=== PATIENT | female | born 1995 | race Caucasian/White ===

== ENCOUNTER 2016-10-08 11:58 | Emergency (ER) | payer OTHER ==
[~2016-10-08] VITALS: Ht 177.8 cm; Wt 72.6 kg
[2016-10-08 12:41] VITALS: BP 120/64
--- NOTE | 2016-10-08 14:21 | NUR ---
Patient to [facility]2.
--- NOTE | 2016-10-08 14:35 | NUR ---
PT PRESENTS TO ER W/C/O FEVER SINCE LAST NOC. TEMPERATURE UPON ARRIVAL TO ER 98.7. . DENIES N/V/D; SKIN IS PINK/WARM/DRY; AAOX4 WITH EVEN AND STEADY GAIT; LUNGS CLEAR BL; HR EVEN AND REGULAR; PT DENIES ANY CP, SOB, OR COUGH AT THIS TIME; PATIENT STATES PAIN OF 7/10 AT THIS TIME; VSS; PATIENT POSITIONED FOR COMFORT; HOB ELEVATED; BEDRAILS UP X2; BED DOWN. ER MD MADE AWARE OF PT STATUS.
--- NOTE | 2016-10-08 14:36 | NUR ---
Danni evaluating patient.
[2016-10-08] MEDS ORDERED: IBUPROFEN 600 MG TAB PO ONE (14:45)
--- NOTE | 2016-10-08 15:14 | NUR ---
Patient discharged with v/s stable. Written and verbal after care instructions given and explained. Patient alert, oriented and verbalized understanding of instructions. Ambulatory with steady gait. All questions addressed prior to discharge. ID band removed. Patient advised to follow up with PMD. Rx of AMOXICILLIN, MOTRIN given. Patient educated on indication of medication including possible reaction and side effects. Opportunity to ask questions provided and answered.
[2016-10-08 15:15] VITALS: BP 137/76
== END 2016-10-08 15:14 | disposition home or self-care (01) ==
LOC: MED 11:58
DX: J02.0 Streptococcal pharyngitis (principal); M79.1 Myalgia
CPT/HCPCS: 81025; 99283

== ENCOUNTER 2017-07-06 12:17 | Emergency (ER) | payer OTHER ==
[~2017-07-06] VITALS: Ht 177.8 cm; Wt 84.4 kg
[2017-07-06 12:20] VITALS: BP 128/72
--- NOTE | 2017-07-06 12:23 | NUR ---
PT AMBULATED TO BED 3.
--- NOTE | 2017-07-06 12:25 | NUR ---
patient is a 21 year-old female who was brought in via private vehicle for c/o left groin abscess x 1 1/2- 2 weeks. patient is alert and oriented x 4. respirations are even and unlabored. no cough or dyspnea observed. patient denies any fever, chills, n,v,d. skin is w,d,i with localized abnormaltiy to left groin, abscess noted. no redness, warmth or swelling observed. patient states greenish drainage has been present for past two days. patient denies any pain or dicomfort at this time. [facility] er evaluation.
--- NOTE | 2017-07-06 12:40 | NUR ---
Dr. Nuno at bedside for evaluation, this nurse accompanied MD for examination.
[2017-07-06] MEDS ORDERED: LIDOCAINE/EPI 2% 1:100000 20 ML VIAL INJ ONE (12:45)
--- NOTE | 2017-07-06 13:00 | NUR ---
Dr. Nuno at bedside for i & d of abscess. this nurse accompanied during procedure. patient tolerated procedure withough any difficulty.
--- NOTE | 2017-07-06 13:15 | NUR ---
dressing applied to left groin area. educated patient on s/s of infection and proper handwashing. verbalized understanding and in agreement.
[2017-07-06 13:31] VITALS: BP 119/74
--- NOTE | 2017-07-06 13:31 | NUR ---
Patient discharged with v/s stable. Written and verbal after care instructions given and explained. Patient alert, oriented and verbalized understanding of instructions. Ambulatory with steady gait. All questions addressed prior to discharge. ID band removed. Patient advised to follow up with PMD. Rx of Ibuprofen, Keflex, and Bactrim given. Patient educated on indication of medication including possible reaction and side effects. Opportunity to ask questions provided and answered.
== END 2017-07-06 13:31 | disposition home or self-care (01) ==
LOC: MED 12:17
DX: L02.416 Cutaneous abscess of left lower limb (principal); F17.210 Nicotine dependence, cigarettes, uncomplicated
CPT/HCPCS: 10060; 99283; J2001

== ENCOUNTER 2019-06-13 14:48 | Emergency (ER) | payer OTHER ==
[~2019-06-13] VITALS: Ht 175.3 cm; Wt 81.6 kg
[2019-06-13 14:58] VITALS: BP 108/79
[2019-06-13] MEDS ORDERED: ACETAMINOPHEN EXTRA STRENGTH 500 MG TAB PO ONE (15:05)
--- NOTE | 2019-06-13 15:37 | NUR ---
23 Y/O F C/C BODYACHES X 1 DAY. PER PT HAS NOT TAKEN ANY MEDICATIONS AT WORK. PT NKA. NO HX. NO RX. NO N/V/D. SITTING IN CHAIR C.
[2019-06-13 16:43] VITALS: BP 108/79
--- NOTE | 2019-06-13 16:43 | NUR ---
Patient discharged with v/s stable. Written and verbal after care instructions given and explained. Patient alert, oriented and verbalized understanding of instructions. Ambulatory with steady gait. All questions addressed prior to discharge. ID band removed. Patient advised to follow up with PMD. Rx of ACETAMINOPHEN,TAMIFLU,IBUPROFEN given. Patient educated on indication of medication including possible reaction and side effects. Opportunity to ask questions provided and answered.
== END 2019-06-13 16:43 | disposition home or self-care (01) ==
LOC: MED 14:48
DX: J06.9 Acute upper respiratory infection, unspecified (principal)
CPT/HCPCS: 87081; 87804; 99283

== ENCOUNTER 2023-08-21 15:50 | Emergency (ER) | payer OTHER ==
[~2023-08-21] VITALS: Ht 175.3 cm; Wt 86.2 kg
[2023-08-21 15:55] VITALS: BP 124/69; PULSE 61; RESP 18; TEMP 96.9; O2SAT 100
[2023-08-21] MEDS ORDERED: ERYT5OIN51 OP (16:11)
== END 2023-08-21 16:26 | disposition home or self-care (01) ==
LOC: MED 15:50
DX: H00.12 Chalazion right lower eyelid (principal); H10.9 Unspecified conjunctivitis; Z79.899 Other long term (current) drug therapy
CPT/HCPCS: 99283

== ENCOUNTER 2023-10-29 20:17 | Emergency (ER) | payer OTHER ==
[~2023-10-29] VITALS: Ht 177.8 cm; Wt 88.5 kg
[~2023-10-29 20:17] MED LIST: ERYT5OIN51 OP
[2023-10-29 20:27] VITALS: BP 123/75; PULSE 65; RESP 16; TEMP 97.8; O2SAT 99
[2023-10-29 21:29] LABS: BASOPHILS % (AUTO) 0.4 % (0.0-2.0); EOSINOPHILS # (AUTO) 0.1 K/uL (0-0.4); EOSINOPHILS % (AUTO) 1.4 % (0.0-4.0); HEMATOCRIT 34.5 % (36-48); HEMOGLOBIN 11.3 g/dL (12.0-16.0); LYMPHOCYTES # (AUTO) 1.6 K/uL (2.5-16.5); LYMPHOCYTES % (AUTO) 17.2 % (20.5-51.1); MEAN CORPUSCULAR HEMOGLOBIN 28 pg (27-31); MEAN CORPUSCULAR HGB CONC 33 g/dL (33-37); MONOCYTES # (AUTO) 0.7 K/uL (0.8-1.0); MONOCYTES % (AUTO) 7.1 % (1.7-9.3); NEUTROPHILS # (AUTO) 6.8 K/uL (1.8-7.7); NEUTROPHILS % (AUTO) 73.9 % (42.2-75.2); PLATELET COUNT (AUTO) 399 K/uL (140-450); RED BLOOD CELL COUNT(AUTO) 4.11 MIL/uL (4.20-5.40); RED CELL DISTRIBUTION WIDTH 14.8 % (11.6-13.7); WHITE BLOOD COUNT (AUTO) 9.2 K/uL (4.8-10.8)
[2023-10-29 21:30] LABS: APPEARANCE,URINE CLEAR (CLEAR); BILIRUBIN,URINE NEGATIVE (NEGATIVE); BLOOD, URINE NEGATIVE (NEGATIVE); COLOR,URINE YELLOW (YELLOW); LEUKOCYTE ESTERASE ,URINE NEGATIVE (NEGATIVE); NITRITE, URINE NEGATIVE (NEGATIVE); PROTEIN,URINE NEGATIVE (NEGATIVE); UGLUCOSE NEGATIVE (NEGATIVE)
[2023-10-29 21:42] LABS: ANION GAP 10.9 (8-16); CALCIUM 8.7 mg/dL (8.5-10.1); CARBON DIOXIDE 28.9 mmol/L (21-32); CREATININE 0.7 mg/dL (0.6-1.3); POTASSIUM 3.8 mmol/L (3.5-5.1)
[2023-10-29 21:45] LABS: ALBUMIN 3.8 g/dL (3.4-5.0); BILIRUBIN,DIRECT 0.1 mg/dL (0.0-0.3); TOTAL BILIRUBIN 0.5 mg/dL (0.0-1.0); TOTAL PROTEIN, SERUM 7.1 g/dL (6.4-8.2)
[2023-10-29 22:17] VITALS: O2SAT 98
[2023-10-29 22:31] VITALS: BP 111/73; PULSE 57; RESP 18; TEMP 98.1; O2SAT 99
== END 2023-10-29 22:31 | disposition home or self-care (01) ==
LOC: MED 20:17
DX: R10.13 Epigastric pain (principal); R19.7 Diarrhea, unspecified; Z79.899 Other long term (current) drug therapy
CPT/HCPCS: 36415; 80048; 80076; 81003; 81025; 83690; 85025; 99283